=== PATIENT | male | born 1950 | race Caucasian/White ===

== ENCOUNTER 2022-08-13 11:40 | Outpatient (CLI) | payer MEDICARE | END 2022-08-13 11:41 | disposition home or self-care (01) | LOC: RAD-FRANK 11:40 | PROVIDERS: ATTEND Nurse Practitioner Family | DX: R05.1 Acute cough (principal) | CPT/HCPCS: 71046 ==

== ENCOUNTER 2022-09-07 07:33 | Outpatient (CLI) | payer MEDICARE | END 2022-09-07 07:34 | disposition home or self-care (01) | LOC: RAD-FRANK 07:33 | PROVIDERS: ATTEND Nurse Practitioner Family | DX: R05.3 Chronic cough (principal) | CPT/HCPCS: 71046 ==